=== PATIENT | female | born 1980 | race Caucasian/White ===

== ENCOUNTER 2018-02-03 12:23 | Emergency (ER) | payer SELFPAY ==
--- NOTE | 2018-02-03 13:38 | EKG ---
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
--- NOTE | 2018-02-03 13:43 | RAD REPORT ---
EXAM DESCRIPTION: [place] Single View02/03/2018 1:26 pm CLINICAL HISTORY: Abdominal pain COMPARISON: none FINDINGS: The lungs appear clear of acute infiltrate. The heart is normal size IMPRESSION: No acute abnormalities displayed
[2018-02-03 13:48] LABS: Bicarbonate 28 mEq/L (21-31); Glomerular Filtration Rate > 60 mL/min (>60); Glucose Level 79 mg/dL (65-120); Lipase 17 U/L (22-51); Potassium 3.3 mEq/L (3.6-5.0); Sodium Level 139 mEq/L (135-145)
[2018-02-03 13:53] LABS: Absolute Monocytes 0.4 K/uL (0.1-1.3); Basophils % 0.4 % (0-1.3); Eosinophils % 1.5 % (0-4.4); Lymphocytes % 30.9 % (15.3-44.8); MCH 30.5 pg (27.0-35.0); MCV 91.8 fL (80-100); MPV 11.4 fL (7.6-11.3); Monocytes % 6.1 % (3.3-12.3); RBC Red Blood Cell Count 4.57 M/uL (3.86-4.86)
[2018-02-03 13:55] LABS: ALT/SGPT 12 IU/L (10-60); AST/SGOT 15 IU/L (10-42); Albumin 4.4 g/dL (3.2-5.5); Alkaline Phosphatase 46 IU/L (42-121); Amylase Level 60 U/L (28-100); BUN Blood Urea Nitrogen 5 mg/dL (6-20); Bilirubin Direct < 0.1 mg/dL (0-0.2); Bilirubin Total 0.4 mg/dL (0.3-1.2); Glomerular Filtration Rate > 90 mL/min (=/>90); Protein, Total 7.4 g/dL (6.0-8.3)
[2018-02-03 14:00] LABS: Urine Blood NEGATIVE (NEG); Urine Glucose NEGATIVE (NEG)
[2018-02-03 14:01] LABS: Urine Protein NEGATIVE (NEG)
[2018-02-03 14:02] LABS: Urine Bacteria NONE SEEN /HPF (<20); Urine Culture Reflex Order NOT NEEDED; Urine RBC NONE SEEN /HPF (NONE SEEN)
--- NOTE | 2018-02-03 14:07 | RAD REPORT ---
EXAM DESCRIPTION: US - Abdomen Exam Limited - 02/03/2018 1:58 pm CLINICAL HISTORY: Abdominal pain. COMPARISON: None. FINDINGS: The patient was not NPO which results in suboptimal evaluation of the gallbladder. The gallbladder wall is not thickened. A gallstone is not seen. The biliary tree is normal caliber. IMPRESSION: No abnormality is displayed
[2018-02-03] MEDS ORDERED: ONDANSETRON 4 MG/2 ML VIAL ONE (14:13)
[2018-02-03] MEDS ORDERED: NA CHLORIDE 0.9% 1,000 ML ONE (14:14)
[2018-02-03] MEDS ORDERED: FAMOTIDINE 20 MG/2 ML VIAL IV ONE (14:14)
[2018-02-03] MEDS ORDERED: MAGNE/ALUM HYDROXD 30 ML UCUP ONE (14:36)
[2018-02-03] MEDS ORDERED: LIDOCAINE VISCOUS 2% SOLN 15 ML UDC ONE (14:36)
--- NOTE | 2018-02-03 15:12 | RAD REPORT ---
EXAM DESCRIPTION: CT - Abdomen Pelvis W Contrast - 02/03/2018 2:32 pm CLINICAL HISTORY: Abdominal pain with vomiting COMPARISON: none. TECHNIQUE: Computed axial tomography of the abdomen pelvis was obtained. 100 cc Isovue-300 was admin istered intravenously. Oral contrast was not requested which limits evaluation of bowel. All CT scans are performed using dose optimization technique as appropriate and may include automated exposure control or mA/KV adjustment according to patient size. FINDINGS: A ventral hernia within the mid abdomen contains fat. The neck measures 18 millimeters. The liver, spleen, pancreas, adrenal and kidneys appear unremarkable. There is no evidence of diverticulitis. The appendix is normal. A 21 millimeter left ovarian cyst is present without significant free-fluid IMPRESSION: Small ventral hernia containing fat 21 millimeter left ovarian cyst without significant free fluid
--- NOTE | 2018-02-03 15:34 | EDPHYS ---
Physician Documentation [facility] Name: Tiffanie Avila Age: 37 yrs Sex: Female : 1980 Arrival Date: 02/03/2018 Time: 12:26 Bed 13 Private MD: ED Physician Devonte Singh HPI: 02/03 13:10 This 37 yrs old Female presents to ER via Ambulatory with complaints of cp Weakness, Vomiting. 13:10 The patient presents with abdominal pain mid abdomen. cp 13:10 Onset: The symptoms/episode began/occurred 2 day(s) ago. Associated signs and symptoms: cp Pertinent positives: vomiting 2 days ago, Pertinent negatives: anorexia, blood in stools, chest pain, constipation, diarrhea, dysuria, active vomiting. Patient reports feeling of "ball" in stomach area. 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 - Social history:: Smoking status: Patient/guardian denies using tobacco. ROS: 13:15 Constitutional: Negative for body aches, chills, fever, poor PO intake. cp 13:15 Eyes: Negative for injury, pain, redness, and discharge. cp 13:15 ENT: Negative for drainage from ear(s), ear pain, sore throat, difficulty swallowing, cp difficulty handling secretions. 13:15 Cardiovascular: Negative for chest pain, edema, palpitations. 13:15 Respiratory: Negative for cough, shortness of breath, wheezing. 13:15 Abdomen/GI: Positive for abdominal pain, nausea, Negative for vomiting, diarrhea, constipation, black/tarry stool, rectal bleeding. 13:15 Back: Negative for pain at rest, pain with movement, radiated pain. 13:15 : Negative for urinary symptoms. 13:15 Skin: Negative for cellulitis, rash. 13:15 Neuro: Negative for altered mental status, headache, weakness. 13:15 All other systems are negative. Exam: 13:22 Constitutional: The patient appears in no acute distress, alert, awake, cp non-diaphoretic, non-toxic, well developed, well nourished. 13:22 Head/Face: Normocephalic, atraumatic. cp 13:22 Eyes: Periorbital structures: appear normal, Conjunctiva: normal, no exudate, no injection, Sclera: no appreciated abnormality, Lids and lashes: appear normal, bilaterally. 13:22 ENT: External ear(s): are unremarkable, Ear canal(s): are normal, clear, TM's: are normal, no evidence of bulging, no erythema, Nose: is normal, Mouth: Lips: moist, Oral mucosa: pink and intact, moist, Posterior pharynx: is normal, airway is patent, no erythema, no exudate. 13:22 Neck: ROM/movement: is normal, is supple, without pain, no range of motions limitations, no meningismus, no nuchal rigidity. 13:22 Chest/axilla: Inspection: normal, Palpation: is normal, no crepitus, no tenderness. 13:22 Cardiovascular: Rate: normal, Rhythm: regular. 13:22 Respiratory: the patient does not display signs of respiratory distress, Respirations: normal, no use of accessory muscles, no retractions, no splinting, no tachypnea, labored breathing, is not present, Breath sounds: are clear throughout, no decreased breath sounds, no stridor, no wheezing. 13:22 Abdomen/GI: Inspection: abdomen appears normal, Bowel sounds: active, all quadrants, Palpation: soft, in all quadrants, moderate abdominal tenderness, in the midline above umbilical area, rebound tenderness, is not appreciated, involuntary guarding. 13:22 Back: pain, is absent, ROM is normal. 13:22 Skin: cellulitis, is not appreciated, no rash present. 13:22 Neuro: Orientation: to person, place \\T\\ time. Mentation: is normal, Cerebellar function: is grossly normal, Motor: moves all fours, strength is normal, Sensation: no obvious gross deficits. Vital Signs: 13:00 BP 110 / 71; Pulse 73; Resp 14; Temp 97.6(O); Pulse Ox 100% on R/A; Weight 63.5 kg (R); lk1 Height 5 ft. 4 in. (162.56 cm) (R); Pain 8/10; 14:11 BP 127 / 65; Pulse 58; Resp 16 S; Pulse Ox 100% on R/A; jl7 15:12 BP 104 / 68; Pulse 60; Resp 16 S; Pulse Ox 100% on R/A; jl7 15:47 BP 114 / 70; Pulse 62; Resp 16 S; Pulse Ox 100% on R/A; Pain 4/10; jl7 13:00 Body Mass Index 24.03 (63.50 kg, 162.56 cm) lk1 MDM: 13:03 Patient medically screened. cp 14:00 Differential diagnosis: appendicitis, bowel obstruction, cholecystitis, Cholelithiasis, cp diverticulitis, gastritis, pancreatitis, Peritonitis, Pelvic Inflammatory Disease, Pyelonephritis, Ureterolithiasis, urinary tract infection. 15:33 Data reviewed: vital signs, nurses notes, lab test result(s), radiologic studies, CT cp scan. 15:33 Response to treatment: the patient's symptoms have markedly improved after treatment, cp VSS. Discussed results of CT that showed ventral hernia. Will discharge to home for continued monitoring and refer to general surgery for f/u. 02/03 13:10 Order name: Amylase, Serum; Complete Time: 14:08 cp 02/03 13:10 Order name: Basic Metabolic Panel; Complete Time: 14:08 cp 02/03 14:08 Interpretation: Normal except: K 3.3; BUN 5. cp 02/03 13:10 Order name: CBC with Diff; Complete Time: 14:08 cp 02/03 14:08 Interpretation: Normal except: MPV 11.4. cp 02/03 13:10 Order name: Creatinine for Radiology; Complete Time: 14:08 cp 02/03 13:10 Order name: Hepatic Function; Complete Time: 14:08 cp 02/03 13:10 Order name: Lipase; Complete Time: 14:08 cp 02/03 13:10 Order name: Urine Microscopic Only; Complete Time: 14:08 cp 02/03 13:10 Order name: US Abdomen Limited; Complete Time: 14:08 cp 02/03 13:10 Order name: XRAY Chest (1 view); Complete Time: 14:08 cp 02/03 13:37 Order name: Urine Dipstick--Ancillary (enter results); Complete Time: 14:08 bd 02/03 13:37 Order name: Urine --Ancillary (enter results); Complete Time: 14:08 bd 02/03 14:10 Order name: CT Abd/Pelvis - W/Contrast: no oral contrast; Complete Time: 15:26 cp 02/03 13:10 Order name: Urine Test (obtain specimen); Complete Time: 13:35 cp 02/03 13:10 Order name: IV Saline Lock; Complete Time: 13:36 cp 02/03 13:10 Order name: Labs collected and sent; Complete Time: 13:36 cp 02/03 13:10 Order name: Urine Dipstick-Ancillary (obtain specimen); Complete Time: 13:36 cp 02/03 13:10 Order name: EKG; Complete Time: 13:11 cp 02/03 13:10 Order name: EKG - Nurse/Tech; Complete Time: 13:52 cp Administered Medications: 14:00 Drug: NS 0.9% 1000 ml Route: IV; Rate: 1 bolus; Site: right antecubital; jl7 14:01 Drug: Zofran 4 mg Route: IVP; Site: right antecubital; jl7 14:23 Follow up: Response: No adverse reaction; Nausea is decreased jl7 14:04 Drug: Pepcid 20 mg Route: IVP; Site: right antecubital; jl7 14:23 Follow up: Response: No adverse reaction jl7 14:18 Drug: GI Cocktail without - (Maalox Suspension 30 ml, Lidocaine Liquid 2 % 15 jl7 ml) Route: PO; 14:45 Follow up: Response: No adverse reaction; Pain is decreased jl7 15:10 Follow up: Response: No adverse reaction; Pain is decreased jl7 15:36 Drug: Potassium Effervescent Tablet 25 mEq Route: PO; jl7 15:45 Follow up: Response: No adverse reaction jl7 Disposition: 02/04 07:24 Co-signature as Attending Physician, Devonte Singh MD I agree with the assessment and ray plan of care. Disposition: 02/03/18 15:34 Discharged to Home. Impression: Ventral hernia without obstruction or gangrene. - Condition is Stable. - Discharge Instructions: Hernia. - Prescriptions for Tramadol 50 mg Oral Tablet - take 1 tablet by ORAL route every 8 hours as needed; 15 tablet. - Medication Reconciliation Form, Thank You Letter, Antibiotic Education, Prescription Opioid Use, Work release form form. - Follow up: Saqib Mandel MD; When: 1 - 2 days; Reason: Recheck today's complaints. - Problem is new. - Symptoms have improved. Signatures: Dispatcher [employer] Devonte Kidd MD MD cha Page, Corey, PA PA cp Kluge, Leah, RN RN lk1 Elizabeth Abreu RN RN jl7
--- NOTE | 2018-02-03 15:34 | ER ---
Nurse's Notes [facility] Name: Tiffanie Avila Age: 37 yrs Sex: Female : 1980 Arrival Date: 02/03/2018 Time: 12:26 Bed 13 Private MD: Diagnosis: Ventral hernia without obstruction or gangrene Presentation: 02/03 12:58 Presenting complaint: Patient states: "2 days ago I threw up all night and I feel weak. lk1 I feel like there is a ball in my stomach.". Transition of care: patient was not received from another setting of care. 12:58 Method Of Arrival: Ambulatory lk1 12:59 Onset of symptoms was February 01, 2018. Care prior to arrival: None. lk1 12:59 Acuity: GELA 3 lk1 Triage Assessment: 12:59 General: Appears in no apparent distress. Behavior is calm, cooperative, appropriate lk1 for age. Pain: Complains of pain in abdomen Pain currently is 8 out of 10 on a pain scale. Neuro: Level of Consciousness is awake, alert, obeys commands, Oriented to person, place, time, situation, Moves all extremities. Full function Gait is steady, Speech is normal, Facial symmetry appears normal, Reports weakness. GI: Reports vomiting, Patient currently denies constipation, diarrhea. 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 - Social history:: Smoking status: Patient/guardian denies using tobacco. Screenin:09 Abuse screen: Denies threats or abuse. Denies injuries from another. Nutritional jl7 screening: No deficits noted. Tuberculosis screening: No symptoms or risk factors identified. Fall Risk IV access (20 points). Total Garcia Fall Scale indicates No Risk (0-24 pts). Assessment: 13:09 General: Appears in no apparent distress. uncomfortable, Behavior is calm, cooperative, jl7 appropriate for age. Pain: Complains of pain in epigastric area Pain does not radiate. Pain currently is 7 out of 10 on a pain scale. Quality of pain is described as squeezing, Pain began 2-3 days ago. Is continuous. Neuro: Level of Consciousness is awake, alert, obeys commands, Oriented to person, place, time, situation. Cardiovascular: Patient's skin is warm and dry. Respiratory: Airway is patent Respiratory effort is even, unlabored, Respiratory pattern is regular, symmetrical. GI: Abdomen is round non-distended, Bowel sounds present X 4 quads. Abd is soft X 4 quads Abdomen is tender to palpation in epigastric area Reports nausea, Patient currently denies diarrhea. : No signs and/or symptoms were reported regarding the genitourinary system. EENT: No signs and/or symptoms were reported regarding the EENT system. Derm: Skin is pink, warm \\T\\ dry. Musculoskeletal: No signs and/or symptoms reported regarding the musculoskeletal system. 14:09 Reassessment: No changes from previously documented assessment. Patient and/or family jl7 updated on plan of care and expected duration. Pain level reassessed. Patient is alert, oriented x 3, equal unlabored respirations, skin warm/dry/pink. 15:12 Reassessment: Patient and/or family updated on plan of care and expected duration. Pain jl7 level reassessed. Patient is alert, oriented x 3, equal unlabored respirations, skin warm/dry/pink. Patient states symptoms have improved. Vital Signs: 13:00 BP 110 / 71; Pulse 73; Resp 14; Temp 97.6(O); Pulse Ox 100% on R/A; Weight 63.5 kg (R); lk1 Height 5 ft. 4 in. (162.56 cm) (R); Pain 8/10; 14:11 BP 127 / 65; Pulse 58; Resp 16 S; Pulse Ox 100% on R/A; jl7 15:12 BP 104 / 68; Pulse 60; Resp 16 S; Pulse Ox 100% on R/A; jl7 15:47 BP 114 / 70; Pulse 62; Resp 16 S; Pulse Ox 100% on R/A; Pain 4/10; jl7 13:00 Body Mass Index 24.03 (63.50 kg, 162.56 cm) lk1 ED Course: 12:26 Patient arrived in ED. rg4 12:59 Triage completed. lk1 13:02 Elizabeth Abreu RN is Primary Nurse. jl7 13:02 Arm band placed on right wrist. lk1 13:03 Devonte Yanes PA is PHCP. cp 13:03 Devonte Singh MD is Attending Physician. cp 13:09 Patient has correct armband on for positive identification. Placed in gown. Bed in low jl7 position. Call light in reach. Side rails up X 1. Pulse ox on. NIBP on. 13:25 X-ray completed. Portable x-ray completed in exam room. Patient tolerated procedure ka well. 13:25 XRAY Chest (1 view) In Process Unspecified. EDMS 13:32 Initial lab(s) drawn, by ia, sent to lab. Urine collected: clean catch specimen, clear. 5 Inserted saline lock: 22 gauge antecubital area, using aseptic technique. Blood collected. 13:35 Amylase, Serum Sent. 5 13:35 Basic Metabolic Panel Sent. 5 13:35 CBC with Diff Sent. 5 13:35 Creatinine for Radiology Sent. 5 13:35 Hepatic Function Sent. [facility] 13:35 Lipase Sent. 5 13:36 EKG done, by certified bench jeweler technician. reviewed by Devonte Singh MD. tc 13:36 Urine Microscopic Only Sent. mh5 13:40 Patient taken to ultrasound. via wheelchair. aa4 13:57 Ultrasound completed. Patient tolerated well. Patient moved back from ultrasound. aa4 13:59 US Abdomen Limited In Process Unspecified. EDMS 14:32 CT Abd/Pelvis - W/Contrast: no oral contrast In Process Unspecified. EDMS 15:33 Saqib Mandel MD is Referral Physician. cp 15:46 No provider procedures requiring assistance completed. IV discontinued, intact, jl7 bleeding controlled, No redness/swelling at site. Pressure dressing applied. Administered Medications: 14:00 Drug: NS 0.9% 1000 ml Route: IV; Rate: 1 bolus; Site: right antecubital; jl7 14:01 Drug: Zofran 4 mg Route: IVP; Site: right antecubital; jl7 14:23 Follow up: Response: No adverse reaction; Nausea is decreased jl7 14:04 Drug: Pepcid 20 mg Route: IVP; Site: right antecubital; jl7 14:23 Follow up: Response: No adverse reaction jl7 14:18 Drug: GI Cocktail without - (Maalox Suspension 30 ml, Lidocaine Liquid 2 % 15 jl7 ml) Route: PO; 14:45 Follow up: Response: No adverse reaction; Pain is decreased jl7 15:10 Follow up: Response: No adverse reaction; Pain is decreased jl7 15:36 Drug: Potassium Effervescent Tablet 25 mEq Route: PO; jl7 15:45 Follow up: Response: No adverse reaction jl7 Outcome: 15:34 Discharge ordered by . lily 15:46 Discharged to home ambulatory. jl7 15:46 Condition: stable 15:46 Discharge instructions given to patient, family, Instructed on discharge instructions, follow up and referral plans. medication usage, Demonstrated understanding of instructions, follow-up care, medications, Prescriptions given X 1. 15:49 Patient left the ED. jl7 Signatures: Dispatcher [employer] EDMS Tawana Sims aa4 Savi Clark, director of food and beverage services EKG Ttc Devonte Yanes PA PA cp Kluge, Leah, RN RN lk1 Snehal Liu Rubi 4 Luann Guillory [facility] Elizabeth Abreu RN RN jl7
[2018-02-03] MEDS ORDERED: POTASSIUM 25 MEQ EFFERV TAB ONE (15:56)
[2018-02-03 16:12] VITALS: TEMP 97.6; O2SAT 100
[2018-02-03 16:15] VITALS: BP 114/70
== END 2018-02-03 15:49 | disposition home or self-care (01) ==
LOC: ER 12:23
DX: K43.9 Ventral hernia without obstruction or gangrene (principal)
CPT/HCPCS: 36415; 71045; 74177; 76705; 80048; 80076; 81003; 81015; 81025; 82150; 83690; 85025; 93005; 96374; 96375; 99285; J2405; J7030; Q9967

== ENCOUNTER 2018-07-21 12:12 | Emergency (ER) | payer SELFPAY ==
[2018-07-21] MEDS ORDERED: ACETAMINOPHEN 325 MG TABLET ONE (12:36)
--- NOTE | 2018-07-21 12:38 | EDPHYS ---
Physician Documentation [facility] Name: Tiffanie Avila Age: 37 yrs Sex: Female : 1980 Arrival Date: 07/21/2018 Time: 12:12 Bed 11 Private MD: Charles Smith V ED Physician King Boone HPI: 07/21 12:35 This 37 yrs old Female presents to ER via Ambulatory with complaints of kb Laceration To Head. 12:35 The patient has a laceration related to: working, flower vase fell onto pt's head, kb occurred at work, and there are no complicating factors. The injury was accidental. The laceration(s) is(are) located on the left frontal area. Onset: The symptoms/episode began/occurred just prior to arrival. Associated signs and symptoms: The patient has no apparent associated signs or symptoms. The patient has not experienced similar symptoms in the past. The patient has not recently seen a physician. 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 - Social history:: Smoking status: Patient uses tobacco products, smokes one-half pack cigarettes per day. - Ebola Screening: : Patient negative for fever greater than or equal to 101.5 degrees Fahrenheit, and additional compatible Ebola Virus Disease symptoms Patient denies exposure to infectious person Patient denies travel to an Ebola-affected area in the 21 days before illness onset No symptoms or risks identified at this time. ROS: 12:35 Constitutional: Negative for fever, chills, and weight loss, Cardiovascular: Negative kb for chest pain, palpitations, and edema, Respiratory: Negative for shortness of breath, cough, wheezing, and pleuritic chest pain, Abdomen/GI: Negative for abdominal pain, nausea, vomiting, diarrhea, and constipation, MS/Extremity: Negative for injury and deformity, Neuro: Negative for headache, weakness, numbness, tingling, and seizure. 12:35 Skin: Positive for laceration(s), of the top of head. Exam: 12:35 Constitutional: This is a well developed, well nourished patient who is awake, alert, kb and in no acute distress. Chest/axilla: Normal chest wall appearance and motion. Nontender with no deformity. No lesions are appreciated. Cardiovascular: Regular rate and rhythm with a normal S1 and S2. No gallops, murmurs, or rubs. Normal PMI, no JVD. No pulse deficits. Respiratory: Lungs have equal breath sounds bilaterally, clear to auscultation and percussion. No rales, rhonchi or wheezes noted. No increased work of breathing, no retractions or nasal flaring. Abdomen/GI: Soft, non-tender, with normal bowel sounds. No distension or tympany. No guarding or rebound. No evidence of tenderness throughout. MS/ Extremity: Pulses equal, no cyanosis. Neurovascular intact. Full, normal range of motion. Neuro: Awake and alert, GCS 15, oriented to person, place, time, and situation. Cranial nerves II-XII grossly intact. Motor strength 5/5 in all extremities. Sensory grossly intact. Cerebellar exam normal. Normal gait. 12:35 Head/face: Noted is no obvious of injury or deformity except a laceration(s), that is superficial, 1.5 cm(s), of the top of head. Vital Signs: 12:35 BP 124 / 75; Pulse 75; Resp 16; Temp 99.0; Pulse Ox 98% on R/A; Weight 61.23 kg; Height aj 5 ft. 4 in. (162.56 cm); 12:35 Body Mass Index 23.17 (61.23 kg, 162.56 cm) aj MDM: 12:34 Patient medically screened. kb 12:37 Data reviewed: vital signs, nurses notes. Data interpreted: Pulse oximetry: on room air kb is 98 %. Interpretation: normal. Counseling: I had a detailed discussion with the patient and/or guardian regarding: the historical points, exam findings, and any diagnostic results supporting the discharge/admit diagnosis, the need for outpatient follow up, a family practitioner, to return to the emergency department if symptoms worsen or persist or if there are any questions or concerns that arise at home. Administered Medications: 12:37 Drug: Tylenol 650 mg Route: PO; aj 12:52 Drug: Tetanus-Diphtheria Toxoid Adult 0.5 ml {Service Girl: [employer]. Exp: iw 07/21/2020. Lot #: [id number]. } Route: IM; Site: right deltoid; Disposition: 14:25 Co-signature as Attending Physician, King Boone MD. rn Disposition: 07/21/18 12:38 Discharged to Home. Impression: Laceration without foreign body of scalp. - Condition is Stable. - Discharge Instructions: Nonsutured Laceration Care, Head Injury, Adult, [id number]. - Work release form, Medication Reconciliation Form, Thank You Letter, Antibiotic Education, Prescription Opioid Use form. - Follow up: Emergency Department; When: As needed; Reason: Worsening of condition. Follow up: Private Physician; When: 2 - 3 days; Reason: Recheck today's complaints, Continuance of care, Re-evaluation by your physician. Signatures: Cristela Reeves, RADHA-Mayela GARCIA-Tawana Mandel RN RN aj Williams, Irene, RN RN iw Nieto, Roman, MD MD rn patient services: (The following items were deleted from the chart) 13:10 12:38 07/21/2018 12:38 Discharged to Home. Impression: Laceration without foreign body iw of scalp. Condition is Stable. Forms are Medication Reconciliation Form, Thank You Letter, Antibiotic Education, Prescription Opioid Use. Follow up: Emergency Department; When: As needed; Reason: Worsening of condition. Follow up: Private Physician; When: 2 - 3 days; Reason: Recheck today's complaints, Continuance of care, Re-evaluation by your physician. kb
--- NOTE | 2018-07-21 12:38 | ER ---
Nurse's Notes [facility] Name: Tiffanie Avila Age: 37 yrs Sex: Female : 1980 Arrival Date: 07/21/2018 Time: 12:12 Bed 11 Private MD: Charles Smith V Diagnosis: Laceration without foreign body of scalp Presentation: 07/21 12:33 Presenting complaint: Patient states: Reports being hit on top of head by object aj falling from shelf. Superficial laceration to top of head with small amount of bleeding. Given tube gauze cap to keep 4x4 in place. Denies LOC. Alert and oriented in triage, talking on cell phone during assessment. Noted to be laughing and smiling. Transition of care: patient was not received from another setting of care. Complicating Factors: There are no complicating factors for this patient. Onset of symptoms was July 21, 2018. Risk Assessment: Do you want to hurt yourself or someone else? Patient reports no desire to harm self or others. Initial Sepsis Screen: Does the patient meet any 2 criteria? No. Patient's initial sepsis screen is negative. Does the patient have a suspected source of infection? No. Patient's initial sepsis screen is negative. Care prior to arrival: None. 12:33 Method Of Arrival: Ambulatory 12:33 Acuity: GELA 5 Triage Assessment: 12:35 General: Appears in no apparent distress. comfortable, Behavior is calm, cooperative, aj appropriate for age. Pain: Complains of pain in top of head. Neuro: Level of Consciousness is awake, alert, obeys commands, Oriented to person, place, time, situation, Appropriate for age Reports headache. Respiratory: Airway is patent Respiratory effort is even, unlabored, Respiratory pattern is regular, symmetrical. Derm: Skin is intact, is healthy with good turgor, Skin is pink, warm \T\ dry. normal. Injury Description: Laceration sustained to top of head is superficial, 0.5 to 2.5 cm long, was sustained 30-60 minutes ago. is bleeding a small amount. 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 - Social history:: Smoking status: Patient uses tobacco products, smokes one-half pack cigarettes per day. - Ebola Screening: : Patient negative for fever greater than or equal to 101.5 degrees Fahrenheit, and additional compatible Ebola Virus Disease symptoms Patient denies exposure to infectious person Patient denies travel to an Ebola-affected area in the 21 days before illness onset No symptoms or risks identified at this time. Screenin:10 Abuse screen: Denies threats or abuse. Denies injuries from another. Nutritional iw screening: No deficits noted. Tuberculosis screening: No symptoms or risk factors identified. Fall Risk None identified. Assessment: 12:40 General: Appears in no apparent distress. comfortable, Behavior is calm, cooperative. iw Pain: Complains of pain in top of head and left frontal area. Neuro: Level of Consciousness is awake, alert, obeys commands. Musculoskeletal: Range of motion: intact in all extremities. Injury Description: Laceration sustained to top of head and left frontal area is superficial. Vital Signs: 12:35 BP 124 / 75; Pulse 75; Resp 16; Temp 99.0; Pulse Ox 98% on R/A; Weight 61.23 kg; Height aj 5 ft. 4 in. (162.56 cm); 12:35 Body Mass Index 23.17 (61.23 kg, 162.56 cm) aj ED Course: 12:12 Patient arrived in ED. ch 12:13 Charles Smith MD is Private Physician. 12:33 Cristela Reeves FNP-C [facility]. kb 12:33 King Boone MD is Attending Physician. kb 12:35 Triage completed. aj 12:35 Arm band placed on left wrist. Patient placed in waiting room, Patient notified of wait aj time Patient Given Tylenol for pain. Provider assessed patient in triage. 12:40 Barbie Faust, ROULA is Primary Nurse. iw 12:40 Patient has correct armband on for positive identification. iw 13:10 No provider procedures requiring assistance completed. Patient did not have IV access iw during this emergency room visit. Administered Medications: 12:37 Drug: Tylenol 650 mg Route: PO; aj 12:52 Drug: Tetanus-Diphtheria Toxoid Adult 0.5 ml {Account Resolution Analyst: SI-BONE. Exp: iw 07/21/2020. Lot #: [id number]. } Route: IM; Site: right deltoid; Outcome: 12:38 Discharge ordered by MD. person 13:09 Discharged to home ambulatory. iw 13:09 Condition: good 13:09 Discharge instructions given to patient, Instructed on discharge instructions, follow up and referral plans. Demonstrated understanding of instructions, follow-up care. 13:10 Patient left the ED. iw Signatures: Cristela Reeves, PAYMENT MANAGER-C PAYMENT MANAGER-Jacqui Resendez, RN RN Tawana Candelario RN RN aj Williams, Irene, RN RN iw
[2018-07-21] MEDS ORDERED: TETANUS & DIPHTHERIA TOX,ADULT 0.5 ML VIAL ONE (12:54)
[2018-07-21 13:21] VITALS: BP 124/75; TEMP 99; O2SAT 98
== END 2018-07-21 13:10 | disposition home or self-care (01) ==
LOC: ER 12:12
DX: S01.01XA Laceration without foreign body of scalp, initial encounter (principal); W20.8XXA Other cause of strike by thrown, projected or falling object, initial encounter; Y93.89 Activity, other specified; Y92.69 Other specified industrial and construction area as the place of occurrence of the external cause; Y99.0 Civilian activity done for income or pay; Z23 Encounter for immunization
CPT/HCPCS: 90714; 99283

== ENCOUNTER 2019-08-23 22:23 | Emergency (ER) | payer SELFPAY ==
[2019-08-23 23:13] LABS: Absolute Lymphocytes (CBC) 3.4 K/uL (0.7-4.9); Basophils % 0.4 % (0-1.3); Hematocrit 35.2 % (36.0-45.0); MPV 11.6 fL (7.6-11.3); RBC Red Blood Cell Count 3.96 M/uL (3.86-4.86)
[2019-08-23 23:25] LABS: ALT/SGPT 15 U/L (12-78); AST/SGOT 12 U/L (15-37); Albumin 3.6 g/dL (3.4-5.0); Alkaline Phosphatase 52 U/L (45-117); BUN Blood Urea Nitrogen 9 mg/dL (7-18); Bicarbonate 26 mmol/L (21-32); Bilirubin Direct < 0.1 mg/dL (0-0.2); Bilirubin Total 0.2 mg/dL (0.2-1.0); Glucose Level 88 mg/dL (74-106); Lipase 116 U/L (73-393); Potassium 3.8 mmol/L (3.5-5.1); Protein, Total 6.8 g/dL (6.4-8.2); Sodium Level 142 mmol/L (136-145)
[2019-08-24] MEDS ORDERED: ONDANSETRON 4 MG/2 ML VIAL ONE (00:52)
[2019-08-24] MEDS ORDERED: MORPHINE 4 MG/ML SYR ONE (00:52)
[2019-08-24 01:14] LABS: Urine Blood NEGATIVE (NEG); Urine Glucose NEGATIVE (NEG); Urine Protein NEGATIVE (NEG); Urine Specific Gravity 1.025 (1.005-1.030)
[2019-08-24 01:18] LABS: Blood Morphology Comment NOT SEEN (NOT SEEN); Platelet Estimate ADEQ
--- NOTE | 2019-08-24 01:45 | ER ---
Nurse's Notes [facility] Name: Tiffanie Avila Age: 38 yrs Sex: Female : 1980 Arrival Date: 08/23/2019 Time: 22:24 Bed 19 Private MD: Diagnosis: Abdominal tenderness, unspecified site Presentation: 08/23 22:33 Presenting complaint: Patient states: C/O RLQ pain that started this morning getting wh worse accompanied by Nausea and constipation. Transition of care: patient was not received from another setting of care. Onset of symptoms was August 23, 2019. Risk Assessment: Do you want to hurt yourself or someone else? Patient reports no desire to harm self or others. Initial Sepsis Screen: Does the patient meet any 2 criteria? No. Patient's initial sepsis screen is negative. Does the patient have a suspected source of infection? No. Patient's initial sepsis screen is negative. Care prior to arrival: None. 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 - Social history:: Smoking status: Patient uses tobacco products. - Ebola Screening: : Patient negative for fever greater than or equal to 101.5 degrees Fahrenheit, and additional compatible Ebola Virus Disease symptoms Patient denies exposure to infectious person. Screenin:35 Abuse screen: Denies threats or abuse. Denies injuries from another. Nutritional screening: No deficits noted. Tuberculosis screening: No symptoms or risk factors identified. Fall Risk None identified. Assessment: 22:38 General: Appears in no apparent distress. Behavior is calm, cooperative, appropriate for age. Pain: Complains of pain in right lower quadrant Pain does not radiate. Pain currently is 5 out of 10 on a pain scale. Quality of pain is described as aching, Pain began gradually. Neuro: Level of Consciousness is awake, alert, obeys commands, Oriented to person, place, time, situation, Appropriate for age. Cardiovascular: Heart tones S1 S2. Respiratory: Airway is patent Respiratory effort is even, unlabored, Respiratory pattern is regular, symmetrical, Breath sounds are clear bilaterally. GI: Abdomen is flat, non-distended, Bowel sounds present X 4 quads. Abdomen is tender to palpation in right lower quadrant. : No signs and/or symptoms were reported regarding the genitourinary system. EENT: No signs and/or symptoms were reported regarding the EENT system. Derm: Skin is intact, is healthy with good turgor, Skin is pink, warm \T\ dry. normal. Musculoskeletal: Circulation, motion, and sensation intact. 23:30 Reassessment: Patient appears in no apparent distress at this time. No changes from previously documented assessment. Patient and/or family updated on plan of care and expected duration. Pain level reassessed. Patient is alert, oriented x 3, equal unlabored respirations, skin warm/dry/pink. 08/24 00:30 Reassessment: Patient appears in no apparent distress at this time. No changes from previously documented assessment. Patient and/or family updated on plan of care and expected duration. Pain level reassessed. Patient is alert, oriented x 3, equal unlabored respirations, skin warm/dry/pink. 01:39 Reassessment: Patient appears in no apparent distress at this time. No changes from previously documented assessment. Patient and/or family updated on plan of care and expected duration. Pain level reassessed. Patient is alert, oriented x 3, equal unlabored respirations, skin warm/dry/pink. Patient denies pain at this time. Patient states feeling better. Patient states symptoms have improved. Vital Signs: 08/23 22:39 BP 109 / 62; Pulse 68; Resp 18; Temp 97.7; Pulse Ox 99% on R/A; 23:30 BP 112 / 61; Pulse 75; Resp 18; Pulse Ox 100% on R/A; 08/24 00:32 BP 114 / 76; Pulse 68; Resp 18; Pulse Ox 99% on R/A; 01:39 BP 117 / 52; Pulse 58; Resp 18; Pulse Ox 99% ; ED Course: 08/23 22:24 Patient arrived in ED. cl3 22:28 Mayito Vargas MD is Attending Physician. tw4 22:33 Vic Briggs is Primary Nurse. wh 22:35 Triage completed. wh 22:39 Arm band placed on right wrist. 22:39 Patient has correct armband on for positive identification. Placed in gown. Bed in low wh position. Call light in reach. Side rails up X 1. Pulse ox on. NIBP on. 22:49 Inserted saline lock: 20 gauge in right antecubital area, using aseptic technique. Blood collected. 08/24 00:02 CT Abd/Pelvis - IV Contrast Only In Process Unspecified. EDAL 00:02 CT completed. Patient tolerated procedure well. Patient moved to CT via wheelchair. Patient moved back from CT. 01:53 No provider procedures requiring assistance completed. IV discontinued, intact, bleeding controlled, No redness/swelling at site. Administered Medications: 00:58 Drug: morphine 4 mg {Note: RASS O.} Route: IVP; Site: right antecubital; 01:40 Follow up: Response: No adverse reaction; Pain is decreased; RASS: Alert and Calm (0) 00:58 Drug: Zofran 4 mg Route: IVP; Site: right antecubital; 01:41 Follow up: Response: No adverse reaction; Nausea is decreased Outcome: 01:44 Discharge ordered by . martín 01:53 Discharged to home ambulatory, with family. 01:53 Condition: stable 01:53 Discharge instructions given to patient, family, Instructed on discharge instructions, follow up and referral plans. POC Acute Appendicitis and Abd Pain Demonstrated understanding of instructions, follow-up care, POC 01:54 Patient left the ED. Signatures: Dispatcher [employer] EDAL Tank Hernandez Vic Briggs Mayito Vargas MD MD tw4 Elis Mast cl3 Corrections: (The following items were deleted from the chart) 04:14 08/23 22:38 GI: Abdomen is flat, non-distended, Bowel sounds present X 4 quads. Abd is wh soft and non tender X 4 quads.
--- NOTE | 2019-08-24 01:46 | EDPHYS ---
Physician Documentation [facility] Name: Tiffanie Avila Age: 38 yrs Sex: Female : 1980 Arrival Date: 08/23/2019 Time: 22:24 Bed 19 Private MD: ED Physician Mayito Vargas HPI: 08/24 01:02 This 38 yrs old Female presents to ER via Ambulatory with complaints of tw4 Abdominal Pain. 01:02 The patient presents with abdominal pain right lower quadrant. Onset: The tw4 symptoms/episode began/occurred this morning, today. The symptoms do not radiate. Associated signs and symptoms: none. The symptoms are described as sharp. Modifying factors: The symptoms are alleviated by nothing, the symptoms are aggravated by nothing. The patient has not experienced similar symptoms in the past. 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 - Social history:: Smoking status: Patient uses tobacco products. - Ebola Screening: : Patient negative for fever greater than or equal to 101.5 degrees Fahrenheit, and additional compatible Ebola Virus Disease symptoms Patient denies exposure to infectious person. ROS: 08/24 01:02 Constitutional: Negative for fever, chills, and weight loss, Eyes: Negative for injury, tw4 pain, redness, and discharge, Cardiovascular: Negative for chest pain, palpitations, and edema, Respiratory: Negative for shortness of breath, cough, wheezing, and pleuritic chest pain. Back: Negative for injury and pain, MS/Extremity: Negative for injury and deformity, Skin: Negative for injury, rash, and discoloration, Neuro: Negative for headache, weakness, numbness, tingling, and seizure. Abdomen/GI: Positive for abdominal pain, nausea, Negative for nausea and vomiting, nausea, vomiting, and diarrhea, diarrhea, abdominal cramps, anorexia, dysphagia, hematemesis, black/tarry stool, rectal pain, rectal bleeding. Exam: 01:02 Constitutional: This is a well developed, well nourished patient who is awake, alert, tw4 and in no acute distress. Head/Face: Normocephalic, atraumatic. Chest/axilla: Normal chest wall appearance and motion. Nontender with no deformity. No lesions are appreciated. Cardiovascular: Regular rate and rhythm with a normal S1 and S2. No gallops, murmurs, or rubs. Normal PMI, no JVD. No pulse deficits. Respiratory: Lungs have equal breath sounds bilaterally, clear to auscultation and percussion. No rales, rhonchi or wheezes noted. No increased work of breathing, no retractions or nasal flaring. Skin: Warm, dry with normal turgor. Normal color with no rashes, no lesions, and no evidence of cellulitis. MS/ Extremity: Pulses equal, no cyanosis. Neurovascular intact. Full, normal range of motion. Neuro: Awake and alert, GCS 15, oriented to person, place, time, and situation. Cranial nerves II-XII grossly intact. Motor strength 5/5 in all extremities. Sensory grossly intact. Cerebellar exam normal. Normal gait. 01:02 Abdomen/GI: Inspection: abdomen appears normal, Bowel sounds: diminished, Palpation: moderate abdominal tenderness, in the right lower quadrant. Vital Signs: 08/23 22:39 BP 109 / 62; Pulse 68; Resp 18; Temp 97.7; Pulse Ox 99% on R/A; wh 23:30 BP 112 / 61; Pulse 75; Resp 18; Pulse Ox 100% on R/A; wh 08/24 00:32 BP 114 / 76; Pulse 68; Resp 18; Pulse Ox 99% on R/A; wh 01:39 BP 117 / 52; Pulse 58; Resp 18; Pulse Ox 99% ; wh MDM: 08/23 22:29 Patient medically screened. tw4 08/24 01:02 Differential diagnosis: appendicitis, Ectopic , gastroesophageal reflux tw4 disease, GI Bleed, non-specific abd pain, Pyelonephritis, Tubal Ovarian Abcess, Ureterolithiasis, urinary tract infection. Data reviewed: vital signs, nurses notes. Counseling: I had a detailed discussion with the patient and/or guardian regarding: the historical points, exam findings, and any diagnostic results supporting the discharge/admit diagnosis, lab results, radiology results. Medication response: morphine markedly relieved the patient's pain. Symptoms have improved. Response to treatment: the patient's symptoms have markedly improved after treatment, and as a result, I will. 01:45 Data reviewed: lab test result(s), CBC, white blood cell count, hemoglobin, hematocrit, tw4 platelets, electrolytes, sodium, potassium, chloride, serum bicarbonate, BUN, creatinine, serum glucose, radiologic studies, CT scan. Special discussion: Based on the patient's Hx, exam, and Dx evaluation, there is no indication for emergent surgery or inpatient Tx. It is understood by the patient/guardian that if the Sx's persist or worsen they need to return immediately for re-evaluation. I discussed with the patient/guardian in detail that at this point there is no indication for admission to the hospital. It is understood, however, that if the symptoms persist or worsen the patient needs to return immediately for re-evaluation. ED course: CT read as normal, pt instructed to return to the ED if symptoms worsen. 08/23 22:29 Order name: Basic Metabolic Panel [facility] 08/23 22:29 Order name: CBC with Diff; Complete Time: 01:42 [facility] 08/24 01:42 Interpretation: Normal except: HCT 35.2; MPV 11.6; LYM% 45.0. tw4 08/23 22:29 Order name: Creatinine for Radiology tw08/23:29 Order name: Hepatic Function; Complete Time: 01:42 [facility] 08/24 01:42 Interpretation: Normal except: AST 12. tw08/23:29 Order name: Lipase; Complete Time: 01:42 [facility] 08/23 22:31 Order name: Basic Metabolic Panel; Complete Time: 01:42 EDMS 08/24 01:42 Interpretation: Normal except: CL 110; GFR 85. tw08/23 22:29 Order name: IV Saline Lock; Complete Time: 22:47 4 08/23 22:29 Order name: Labs collected and sent; Complete Time: 22:47 08/23 23:04 Order name: Urine Dipstick--Ancillary (enter results); Complete Time: 01:42 mt 08/24 01:42 Interpretation: Within normal limits. tw08/23 23:04 Order name: Urine --Ancillary (enter results); Complete Time: 01:42 mt 08/24 01:43 Interpretation: Within normal limits. 08/23 23:11 Order name: CT Abd/Pelvis - IV Contrast Only tw4 08/23 23:16 Order name: Manual Differential; Complete Time: 01:41 EDDC 08/24 01:42 Interpretation: Normal except: BANDS [F] 3; SEGS 36; LYM 48; EOS 4. tw4 08/23 22:29 Order name: Urine Dipstick-Ancillary (obtain specimen); Complete Time: 22:54 tw4 08/23 22:29 Order name: Urine Test (obtain specimen); Complete Time: 22:54 tw4 Administered Medications: 00:58 Drug: morphine 4 mg {Note: RASS O.} Route: IVP; Site: right antecubital; 01:40 Follow up: Response: No adverse reaction; Pain is decreased; RASS: Alert and Calm (0) 00:58 Drug: Zofran 4 mg Route: IVP; Site: right antecubital; 01:41 Follow up: Response: No adverse reaction; Nausea is decreased Disposition: 08/24/19 01:44 Discharged to Home. Impression: Abdominal tenderness, unspecified site. - Condition is Stable. - Discharge Instructions: Abdominal Pain, Adult, Appendicitis, [id number]. - Medication Reconciliation Form, Thank You Letter, Antibiotic Education, Prescription Opioid Use form. - Follow up: Private Physician; When: Upon discharge from the Emergency Department; Reason: If symptoms return, Recheck today's complaints, Continuance of care. Follow up: Emergency Department; When: As needed; Reason: If symptoms return. - Problem is new. - Symptoms have improved. Signatures: Dispatcher [employer] EDDC Vic Briggs Mayito Vargas MD MD tw4 Corrections: (The following items were deleted from the chart) 01:54 01:44 08/24/2019 01:44 Discharged to Home. Impression: Abdominal tenderness, wh unspecified site. Condition is Stable. Forms are Medication Reconciliation Form, Thank You Letter, Antibiotic Education, Prescription Opioid Use. Follow up: Private Physician; When: Upon discharge from the Emergency Department; Reason: If symptoms return, Recheck today's complaints, Continuance of care. Follow up: Emergency Department; When: As needed; Reason: If symptoms return. Problem is new. Symptoms have improved. tw4
[2019-08-24 02:06] VITALS: TEMP 97.7
[2019-08-24 02:10] VITALS: O2SAT 99
[2019-08-24 02:11] VITALS: BP 117/52
--- NOTE | 2019-08-24 10:58 | RAD REPORT ---
EXAM DESCRIPTION: CT - Abdomen Pelvis W Contrast - 08/24/2019 1:22 am CLINICAL HISTORY: The patient is 38 years old and is Female; ABD PAIN TECHNIQUE: Axial computed tomography images of the abdomen and pelvis with intravenous contrast. S agittal and coronal reformatted images were created and reviewed. This CT exam was performed using one or more of the following dose reduction techniques: automated exposure control, adjustment of t he mA and/or kV according to patient size, and/or use of iterative reconstruction technique. COMPARISON: No relevant prior studies available. FINDINGS: LUNG BASES: Unremarkable. No mass. No consolidation. ABDOMEN: LIVER: Unremarkable. No mass. GALLBLADDER AND BILE DUCTS: The gallbladder is contracted. PANCREAS: No ductal dilation. No mass. SPLEEN: Unremarkable. ADRENALS: Unremarkable. No mass. KIDNEYS AND URETERS: Unremarkable. The kidneys enhance symmetrically. No obstructing renal or ur eteral calculus is seen. No hydronephrosis or hydroureter. No perinephric fluid or stranding. STOMACH AND BOWEL: The stomach is well distended with food contents. The small bowel is normal i n caliber. A moderate amount stool is present throughout colon. There is no mucosal thickening or navneet dence of bowel obstruction. PELVIS: APPENDIX: The appendix is normal in caliber without surrounding inflammation. BLADDER: Unremarkable. No mass. REPRODUCTIVE: A 2.2 cm left ovarian cyst is present. The uterus and right ovary are normal. ABDOMEN and PELVIS: INTRAPERITONEAL SPACE: Unremarkable. No free air. No significant fluid collection. BONES/JOINTS: No acute fracture. SOFT TISSUES: A fat-containing ventral wall hernia is present. VASCULATURE: Unremarkable. No abdominal aortic aneurysm. LYMPH NODES: Unremarkable. No enlarged lymph nodes. IMPRESSION: 1. Normal appendix. 2. Left ovarian cyst. No follow-up imaging recommended. Electronically signed by: Elise Hagen MD 08/24/2019 12:13 AM CDT Due to temporary technical issues with the PACS/Fluency reporting system, reports are being signed by the in house radiologist as a courtesy to ensure prompt reporting. The interpreting radiologist is f ully responsible for the content of the report.
== END 2019-08-24 01:54 | disposition home or self-care (01) ==
LOC: ER 22:23
DX: R10.813 Right lower quadrant abdominal tenderness (principal); Z72.0 Tobacco use; Z91.018 Allergy to other foods
CPT/HCPCS: 36415; 74177; 80048; 80076; 81003; 81025; 83690; 85025; 96374; 96375; 99284; J2405; Q9967

== ENCOUNTER 2022-03-08 18:19 | Emergency (ER) | payer SELFPAY ==
[2022-03-08 18:59] LABS: Absolute Lymphocytes (CBC) 0.8 K/uL (0.7-4.9); Hematocrit 38.7 % (36.0-45.0); Lymphocytes % 9.9 % (15.3-44.8); RBC Red Blood Cell Count 4.35 M/uL (3.86-4.86)
[2022-03-08 19:11] LABS: Potassium 3.7 mmol/L (3.5-5.1)
[2022-03-08 19:18] LABS: Albumin 3.5 g/dL (3.4-5.0); Bilirubin Total 0.5 mg/dL (0.2-1.0); Protein, Total 6.9 g/dL (6.4-8.2)
[2022-03-08] MEDS ORDERED: ONDANSETRON 4 MG/2 ML VIAL ONE (19:32)
[2022-03-08] MEDS ORDERED: FAMOTIDINE 20 MG/2 ML VIAL IV ONE (19:33)
[2022-03-08] MEDS ORDERED: NA CHLORIDE 0.9% 1,000 ML ONE (19:33)
[2022-03-08] MEDS ORDERED: MORPHINE 2 MG/ML SYR ONE (19:33)
[2022-03-08 19:44] LABS: SARS-COV-2 RT PCR NEGATIVE (NEGATIVE)
--- NOTE | 2022-03-08 20:03 | RAD REPORT ---
EXAM DESCRIPTION: CTAbdomen Pelvis W Contrast - 03/08/2022 7:51 pm CLINICAL HISTORY: Abdominal pain, acute, nonlocalized COMPARISON: Abdomen Pelvis W Contrast dated 08/23/2019; Abdomen Pelvis W Contrast dated 02/03/2018 TECHNIQUE: CT of the abdomen and pelvis was performed. All CT scans are performed using dose optimization technique as appropriate and may include automated exposure control or mA/KV adjustment according to patient size. FINDINGS: Lower chest: No acute abnormality. Liver: No acute abnormality or suspicious lesions. Biliary: No biliary ductal dilatation. Stomach: No significant focal abnormality. Duodenum: No significant focal abnormality. Pancreas: No significant abnormality. Spleen: No significant abnormality. Adrenal: No suspicious lesions. Kidney/ureter: No hydronephrosis. No renal calculi. Retroperitoneum: No retroperitoneal adenopathy. Vascular: No aneurysm. Bowel: Normal appendix. No bowel obstruction.. Peritoneum: Small volume of pelvic free fluid. Fat containing ventral hernia which is moderate in siz e a narrow neck. No complicating features otherwise. Bladder: Grossly unremarkable. Reproductive: No adnexal masses. Bones: No acute fracture. Moderate disc height loss at L5-S1. Other: n/a IMPRESSION: No acute intra-abdominal or pelvic finding. Normal appendix.
--- NOTE | 2022-03-08 20:36 | ER ---
Nurse's Notes [facility] Name: Tiffanie Avila Age: 41 yrs Sex: Female : 1980 Arrival Date: 03/08/2022 Time: 18:23 Bed 15 Private MD: Diagnosis: Vomiting;Fever, unspecified;Abdominal pain, Generalized;Ventral hernia without obstruction or gangrene Presentation: 03/08 18:32 Chief complaint: Patient states: Upper abd pain, N/V/D that began this morning. ss Coronavirus screen: Client denies travel out of the [place] in the last 14 days. Ebola Screen: Patient denies exposure to infectious person. Patient denies travel to an Ebola-affected area in the 21 days before illness onset. Initial Sepsis Screen: Does the patient meet any 2 criteria? No. Patient's initial sepsis screen is negative. Does the patient have a suspected source of infection? No. Patient's initial sepsis screen is negative. Risk Assessment: Do you want to hurt yourself or someone else? Patient reports no desire to harm self or others. Onset of symptoms was March 08, 2022. 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 - Social history:: Smoking status: Patient/guardian denies using tobacco. - Family history:: not pertinent. Screenin:42 Abuse screen: Denies threats or abuse. Denies injuries from another. Nutritional sm5 screening: No deficits noted. Tuberculosis screening: No symptoms or risk factors identified. Fall Risk None identified. Assessment: 19:41 General: Appears uncomfortable, Behavior is cooperative. Pain: Complains of pain in sm5 left lower quadrant and right lower quadrant and left upper quadrant and right upper quadrant. Neuro: No deficits noted. Level of Consciousness is awake, alert, obeys commands, Oriented to person, place, time, situation. Cardiovascular: No deficits noted. Capillary refill < 3 seconds Patient's skin is warm and dry. Respiratory: No deficits noted. Airway is patent Trachea midline Respiratory effort is even, unlabored. GI: Abdomen is flat, Reports lower abdominal pain, upper abdominal pain, nausea, vomiting. Vital Signs: 18:32 Resp 23; Weight 74.84 kg; Height 5 ft. 4 in. (162.56 cm); Pain 10/10; ss 18:34 BP 101 / 69; Pulse 99; Temp 99.4(TE); Pulse Ox 99% on R/A; ss 19:41 BP 131 / 81; Pulse 87; Resp 19; Pulse Ox 97% on R/A; sm5 20:47 BP 109 / 54; Pulse 86; Resp 18; Pulse Ox 100% on R/A; sm5 18:32 Body Mass Index 28.32 (74.84 kg, 162.56 cm) ss ED Course: 18:23 Patient arrived in ED. ds1 18:33 Triage completed. ss 18:33 Arm band placed on right wrist. ss 18:36 Devonte Singh MD is Attending Physician. [facility] 18:40 Ronna Mayer, ROULA is Primary Nurse. ld1 18:49 Inserted saline lock: 20 gauge in left antecubital area, using aseptic technique. Blood zm collected. 18:50 Bed in low position. Call light in reach. Side rails up X 1. Door closed. Noise zm minimized. Warm blanket given. 18:58 COVID-19/FLU A+B (Document "Date of Onset" if Symptomatic) Sent. mb7 19:03 Devonte Yanes PA is PHCP. cp 19:09 Teetee Cruz, ROULA is Primary Nurse. sm5 19:53 CT Abd/Pelvis - IV Contrast Only In Process Unspecified. EDMS 20:47 No provider procedures requiring assistance completed. IV discontinued, intact, sm5 bleeding controlled, No redness/swelling at site. Pressure dressing applied. Administered Medications: 19:37 Drug: NS 0.9% 1000 ml Route: IV; Rate: 1 bolus; Site: left antecubital; sm5 20:48 Follow up: IV Status: Completed infusion; IV Intake: 1000ml sm5 19:37 Drug: morphine 2 mg Route: IVP; Site: left antecubital; sm5 20:48 Follow up: Response: Pain is decreased 5 19:38 Drug: Pepcid (famotidine) 20 mg Route: IVP; Site: left antecubital; sm5 20:48 Follow up: Response: No adverse reaction sm5 19:38 Drug: Zofran (Ondansetron) 4 mg Route: IVP; Site: left antecubital; sm5 20:48 Follow up: Response: No adverse reaction sm5 20:29 Not Given (Duplicate Order): NS 0.9% 1000 ml IV at 1 bolus Per protocol; 1000 mL bolus sm5 20:29 Not Given (Duplicate Order): NS 0.9% 1000 ml IV at 1 bolus Per protocol; 1000 mL bolus sm5 Intake: 20:48 IV: 1000ml; Total: 1000ml. sm5 Outcome: 20:35 Discharge ordered by MD. cp 20:47 Discharged to home ambulatory, with family. sm5 20:47 Condition: stable 20:47 Discharge instructions given to patient, family, Instructed on discharge instructions, follow up and referral plans. medication usage, Demonstrated understanding of instructions, follow-up care, medications, Prescriptions given X 4. 20:48 Patient left the ED. sm5 Signatures: Dispatcher [employer] EDMS Devonte Singh MD MD cha Sanford, Demi ds1 Jess Cameron RN RN Devonte Menard PA PA cp Dibbern, Lauren, RN RN ld1 Marsha Singh Teetee Bauer RN RN sm5 Alda Guillory Corrections: (The following items were deleted from the chart) 18:36 18:33 PSHx: None; [facility]
--- NOTE | 2022-03-08 20:36 | EDPHYS ---
Physician Documentation [facility] Name: Tiffanie Avila Age: 41 yrs Sex: Female : 1980 Arrival Date: 03/08/2022 Time: 18:23 Bed 15 Private MD: ED Physician Devonte Singh HPI: 03/08 18:47 This 41 yrs old Female presents to ER via Ambulatory with complaints of ray Fever, Nausea/Vomiting. 18:47 The patient reports fever, that was measured at 99.4 degrees Fahrenheit. Onset: The ray symptoms/episode began/occurred today. Modifying factors: there are no obvious modifying factors. Associated signs and symptoms: Pertinent positives: abdominal pain, nausea, vomiting. Severity of symptoms: At their worst the symptoms were mild in the emergency department the symptoms are unchanged. The patient has experienced similar episodes in the past, a few times. 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 - Social history:: Smoking status: Patient/guardian denies using tobacco. - Family history:: not pertinent. ROS: 18:47 Eyes: Negative for injury, pain, redness, and discharge, ENT: Negative for injury, ray pain, and discharge, Neck: Negative for injury, pain, and swelling, Cardiovascular: Negative for chest pain, palpitations, and edema, Respiratory: Negative for shortness of breath, cough, wheezing, and pleuritic chest pain, Back: Negative for injury and pain, : Negative for injury, bleeding, discharge, and swelling, MS/Extremity: Negative for injury and deformity, Skin: Negative for injury, rash, and discoloration, Neuro: Negative for headache, weakness, numbness, tingling, and seizure, Psych: Negative for depression, anxiety, suicide ideation, homicidal ideation, and hallucinations, Allergy/Immunology: Negative for hives, rash, and allergies, Endocrine: Negative for neck swelling, polydipsia, polyuria, polyphagia, and marked weight changes, Hematologic/Lymphatic: Negative for swollen nodes, abnormal bleeding, and unusual bruising. 18:47 Constitutional: Positive for fever. 18:47 Abdomen/GI: Positive for nausea and vomiting, diarrhea. Exam: 18:47 Head/Face: Normocephalic, atraumatic. Eyes: Pupils equal round and reactive to light, ray extra-ocular motions intact. Lids and lashes normal. Conjunctiva and sclera are non-icteric and not injected. Cornea within normal limits. Periorbital areas with no swelling, redness, or edema. ENT: Nares patent. No nasal discharge, no septal abnormalities noted. Tympanic membranes are normal and external auditory canals are clear. Oropharynx with no redness, swelling, or masses, exudates, or evidence of obstruction, uvula midline. Mucous membranes moist. Neck: Trachea midline, no thyromegaly or masses palpated, and no cervical lymphadenopathy. Supple, full range of motion without nuchal rigidity, or vertebral point tenderness. No Meningismus. Chest/axilla: Normal chest wall appearance and motion. Nontender with no deformity. No lesions are appreciated. Cardiovascular: Regular rate and rhythm with a normal S1 and S2. No gallops, murmurs, or rubs. Normal PMI, no JVD. No pulse deficits. Respiratory: Lungs have equal breath sounds bilaterally, clear to auscultation and percussion. No rales, rhonchi or wheezes noted. No increased work of breathing, no retractions or nasal flaring. Back: No spinal tenderness. No costovertebral tenderness. Full range of motion. Female : Normal external genitalia. Skin: Warm, dry with normal turgor. Normal color with no rashes, no lesions, and no evidence of cellulitis. MS/ Extremity: Pulses equal, no cyanosis. Neurovascular intact. Full, normal range of motion. Neuro: Awake and alert, GCS 15, oriented to person, place, time, and situation. Cranial nerves II-XII grossly intact. Motor strength 5/5 in all extremities. Sensory grossly intact. Cerebellar exam normal. Normal gait. 18:47 Constitutional: The patient appears well developed, febrile. 18:47 Abdomen/GI: Inspection: abdomen appears normal, Bowel sounds: normal, Palpation: mild abdominal tenderness, in the right upper quadrant, left upper quadrant, right lower quadrant and left lower quadrant, Liver: no appreciated palpable abnormalities, Hernia: not appreciated. Vital Signs: 18:32 Resp 23; Weight 74.84 kg; Height 5 ft. 4 in. (162.56 cm); Pain 10/10; ss 18:34 BP 101 / 69; Pulse 99; Temp 99.4(TE); Pulse Ox 99% on R/A; ss 19:41 BP 131 / 81; Pulse 87; Resp 19; Pulse Ox 97% on R/A; sm5 20:47 BP 109 / 54; Pulse 86; Resp 18; Pulse Ox 100% on R/A; sm5 18:32 Body Mass Index 28.32 (74.84 kg, 162.56 cm) ss MDM: 18:36 Patient medically screened. ray 18:52 Differential diagnosis: viral Infection, bacterial infection, UTI, gastroenteritis. [facility] Data reviewed: vital signs, nurses notes, lab test result(s), radiologic studies, CT scan. Data interpreted: microbiology supervisor: not applicable for this patient encounter. rate is 99 beats/min, Pulse oximetry: on room air. Test interpretation: by ED physician or midlevel provider:. Counseling: I had a detailed discussion with the patient and/or guardian regarding: the historical points, exam findings, and any diagnostic results supporting the discharge/admit diagnosis, lab results, radiology results. 03/08 18:45 Order name: CBC with Diff; Complete Time: 19:07 [facility] 03/08 20:10 Interpretation: RHIANNA% 84.0; LYM% 9.9; Reviewed. 03/08 18:45 Order name: CMP; Complete Time: 20:09 [facility] 03/08 20:09 Interpretation: Normal except: GLUC 113; GFR 80; AST 11; A/G 1.0. 03/08 18:45 Order name: Lipase; Complete Time: 20:09 [facility] 03/08 18:45 Order name: Urine Microscopic Only [facility] 03/08 18:45 Order name: COVID-19/FLU A+B (Document "Date of Onset" if Symptomatic); Complete Time: [facility] 20:03/08 20:41 Order name: Urine Dipstick-Ancillary [facility] 03/08 18:45 Order name: CT Abd/Pelvis - IV Contrast Only; Complete Time: 20:09 [facility] 03/08 20:41 Order name: Urine --Ancillary (enter results) mw2 03/08 18:45 Order name: IV Saline Lock; Complete Time: 18:57 [facility] 03/08 18:45 Order name: Labs collected and sent; Complete Time: 18:57 [facility] 03/08 18:45 Order name: Urine Dipstick-Ancillary (obtain specimen); Complete Time: 20:41 [facility] Administered Medications: 19:37 Drug: NS 0.9% 1000 ml Route: IV; Rate: 1 bolus; Site: left antecubital; sm5 20:48 Follow up: IV Status: Completed infusion; IV Intake: 1000ml sm5 19:37 Drug: morphine 2 mg Route: IVP; Site: left antecubital; sm5 20:48 Follow up: Response: Pain is decreased sm5 19:38 Drug: Pepcid (famotidine) 20 mg Route: IVP; Site: left antecubital; sm5 20:48 Follow up: Response: No adverse reaction sm5 19:38 Drug: Zofran (Ondansetron) 4 mg Route: IVP; Site: left antecubital; sm5 20:48 Follow up: Response: No adverse reaction sm5 20:29 Not Given (Duplicate Order): NS 0.9% 1000 ml IV at 1 bolus Per protocol; 1000 mL bolus sm5 20:29 Not Given (Duplicate Order): NS 0.9% 1000 ml IV at 1 bolus Per protocol; 1000 mL bolus sm5 Disposition Summary: 03/08/22 20:35 Discharge Ordered Location: Home cp Problem: new cp Symptoms: have improved cp Condition: Stable cp Diagnosis - Vomiting cp - Fever, unspecified cp - Abdominal pain, Generalized cp - Ventral hernia without obstruction or gangrene cp Followup: ray - With: Private Physician - When: 2 - 3 days - Reason: Recheck today's complaints, Continuance of care, Re-evaluation by your physician Discharge Instructions: - Discharge Summary Sheet ray - Abdominal Pain, Adult ray - Fever, Adult ray - Abdominal Pain, Adult, [id number] ray - Nausea and Vomiting, Adult ray - Nausea and Vomiting, Adult, [id number] ray - Fever, Adult, Vyal-uh-Vwct ray - Ventral Hernia cp Forms: - Medication Reconciliation Form cp - Thank You Letter cp - Antibiotic Education cp - Prescription Opioid Use cp - Work release form 5 Prescriptions: - Pepcid 20 mg Oral Tablet - take 1 tablet by ORAL route every 12 hours for 10 days; 20 tablet; Refills: 0, ray Product Selection Permitted - Zofran 4 mg Oral Tablet - take 1 tablet by ORAL route every 12 hours As needed; 20 tablet; Refills: 0, [facility] Product Selection Permitted - promethazine 25 mg Oral Tablet - take 1 tablet by ORAL route every 6 hours As needed; 20 tablet; Refills: 0, [facility] Product Selection Permitted - dicyclomine 20 mg Oral Tablet - take 1 tablet by ORAL route 4 times per day; 28 tablet; Refills: 0, Product ray Selection Permitted Signatures: Dispatcher [employer] EDTN Devonte Singh MD MD cha Smirch, Shelby, RN RN ss Devonte Yanes PA PA cp Mazur, Sarah RN RN sm5 Corrections: (The following items were deleted from the chart) 18:36 18:33 PSHx: None; [facility]
[2022-03-08 20:40] LABS: Urine Blood Negative (Negative); Urine Glucose Negative (Negative); Urine Protein Negative (Negative); Urine pH 5.5 (5.0-7.0)
[2022-03-08 21:16] LABS: Urine Bacteria <20 /HPF (<20); Urine RBC <5 /HPF (NONE SEEN)
[2022-03-08 21:58] VITALS: TEMP 99.4
[2022-03-08 22:07] VITALS: BP 109/54; O2SAT 100
== END 2022-03-08 20:48 | disposition home or self-care (01) ==
LOC: ER 18:19
DX: K43.9 Ventral hernia without obstruction or gangrene (principal); R10.84 Generalized abdominal pain; R11.10 Vomiting, unspecified; Z91.018 Allergy to other foods
CPT/HCPCS: 0240U; 36415; 74177; 80053; 81003; 81015; 81025; 83690; 85025; 96361; 96374; 96375; 99284; J2270; J2405; J3490; J7030; Q9967